=== PATIENT | female | born 1990 | race American Indian/Alaskan Native ===

== ENCOUNTER 2016-11-11 15:55 | Emergency (ER) | payer OTHER ==
[~2016-11-11] VITALS: Ht 154.9 cm; Wt 61.7 kg
[2016-11-11] MEDS ORDERED: PRENATAL 19 TA1 EAC1 PO (16:22)
[2016-11-11] MEDS ORDERED: ONDANSETRON ODT8 MG PO (18:01)
== END 2016-11-11 18:20 | disposition home or self-care (01) ==
LOC: ED 15:55
DX: O62.4 Hypertonic, incoordinate, and prolonged uterine contractions (principal); O98.812 Other maternal infectious and parasitic diseases complicating pregnancy, second trimester; B96.89 Other specified bacterial agents as the cause of diseases classified elsewhere; Z3A.18 18 weeks gestation of pregnancy
CPT/HCPCS: 80053; 81001; 85025; 87088; 96360; 99283; J7030

== ENCOUNTER 2017-04-04 11:25 | Inpatient (IN) | payer OTHER ==
[~2017-04-04 11:25] MED LIST: ONDANSETRON ODT8 MG PO; PRENATAL 19 TA1 EAC1 PO
--- NOTE | 2017-04-04 13:01 | PR ---
[facility] [address] [place], [place] [address] Signed Progress Notes IP Datetime Report Generated by CPN: 04/04/2017 13:01 PROGRESS NOTES: [id number] Impression: Normal progression of labor; Reassuring heart rate Other Impressions: possible abruption Procedures: Artificial ROM Plan: Continue present management; Anesthesia consult Informed Consent Obtain: Vaginal Delivery; Risks, Benefits and Alternatives Discussed VITAL SIGNS: [id number] Vital Signs: Reviewed; Within Normal Limits EXAM: [id number] Dilatation: 4.0 Effacement: 90 Station: -2 Uterine Contractions: q 1 to 2 min MEMBRANES: [id number] Membrane Status: Intact ROM Note: AROM with moderate blood seen. Unable to assess color of fluid. Comments: Progressing. Will continue close observation and place epidural. Fetus A: [id number] FHR Baseline: 150 Variability: Moderate 6-25bpm Accelerations: 15X15 Decelerations: None FHR Category: Category I Presentation: Vertex Comments on Fetus A: overall reassuring at this time but will require close observation Fetus B: [id number] Signing Physician: Leonor Irving MD CC: *Electronically Signed* 04/04/17 1301 LEONOR IRVING MD PATIENT NAME: CLARISSE MEDRANO PROGRESS NOTE DATE OF : 89 PHYSICIAN: LEONOR IRVING MD RPT #: [id number] REPORT IS CONFIDENTIAL AND NOT TO BE RELEASED WITHOUT AUTHORIZATION
--- NOTE | 2017-04-06 08:31 | PR ---
[facility] [address] [facility] [place] [address] Signed PP Progress Notes Datetime Report Generated by CPN: 04/06/2017 08:30 SUBJECTIVE: [id number] Pain: Within normal limits Vital Signs: [id number] Vital Signs: Reviewed; Within Normal Limits EXAM: [id number] Cardiovascular: Not Done Respiratory: Not Done Abdomen/Uterus: Abnormal Lochia: Normal Vulva/Perineum: Not Done Breasts: Not Done CVA Tenderness: Not Done Extremities: Normal Incision: Not Applicable Progress: Not Applicable Exam Comments: Fundus firm, NT @ U-1. IMPRESSION/PLAN/PROCEDURES: [id number] Impression: Normal progression Plan: Discharge Procedures: Rubella Progress Notes: Doing well. She is ready for D/C. Signing Physician: Leonor Irving MD CC: *Electronically Signed* 04/06/17829 LEONOR IRVING MD PATIENT NAME: CLRAISSE MEDRANO PROGRESS NOTE DATE OF : 89 PHYSICIAN: LEONOR IRVING MD RPT #: [id number] REPORT IS CONFIDENTIAL AND NOT TO BE RELEASED WITHOUT AUTHORIZATION
== END 2017-04-06 13:45 | disposition home or self-care (01) | DRG 775 ==
LOC: FBCO 11:25 → FBC 12:00
PROVIDERS: ADMIT Obstetrics & Gynecology
PROC: 10E0XZZ Delivery of Products of Conception, External Approach (ICD-10-PCS; principal; 2017-04-04)
PROC: 0KQM0ZZ Repair Perineum Muscle, Open Approach (ICD-10-PCS; principal; 2017-04-04)
PROC: 10907ZC Drainage of Amniotic Fluid, Therapeutic from Products of Conception, Via Natural or Artificial Opening (ICD-10-PCS; principal; 2017-04-04)
PROC: 3E0R3BZ Introduction of Anesthetic Agent into Spinal Canal, Percutaneous Approach (ICD-10-PCS; 2017-04-04)
PROC: 00HU33Z Insertion of Infusion Device into Spinal Canal, Percutaneous Approach (ICD-10-PCS; 2017-04-04)
DX: O70.1 Second degree perineal laceration during delivery (principal); Z37.0 Single live birth; O69.81X0 Labor and delivery complicated by cord around neck, without compression, not applicable or unspecified; Z3A.39 39 weeks gestation of pregnancy; O99.02 Anemia complicating childbirth; D53.8 Other specified nutritional anemias; E55.9 Vitamin D deficiency, unspecified
CPT/HCPCS: 01960; 36415; 82803; 85027; 90707; J2590; J7120